=== PATIENT | male | born 1975 | race Caucasian/White ===

== ENCOUNTER 2021-12-30 09:41 | Emergency (ER) | payer SELFPAY ==
[~2021-12-30] VITALS: Ht 180.3 cm; Wt 95.3 kg
[2021-12-30] MEDS ORDERED: NORVASC10 MG PO (11:44)
== END 2021-12-30 12:14 | disposition home or self-care (01) ==
LOC: FER 09:41
DX: M23.92 Unspecified internal derangement of left knee (principal); F17.210 Nicotine dependence, cigarettes, uncomplicated
CPT/HCPCS: 73564